=== PATIENT | male | born 1960 | race Caucasian/White ===

== ENCOUNTER 2021-11-30 11:31 | Emergency (ER) | payer OTHER ==
[2021-11-30] MEDS ORDERED: Apixaban 5 MG Tab PO ONE (14:23)
== END 2021-11-30 14:47 | disposition home or self-care (01) ==
LOC: JD.ED 11:31
DX: I80.01 Phlebitis and thrombophlebitis of superficial vessels of right lower extremity (principal); I10 Essential (primary) hypertension; Z88.0 Allergy status to penicillin; Z79.899 Other long term (current) drug therapy
CPT/HCPCS: 93971; 99283; A9270